=== PATIENT | male | born 1965 ===

== ENCOUNTER 2022-02-14 13:03 | Emergency (ER) | payer BC ==
[~2022-02-14] VITALS: Ht 175.3 cm; Wt 79.5 kg
[2022-02-14 13:56] VITALS: BP 117/79
== END 2022-02-14 14:03 | disposition left against medical advice (07) ==
LOC: ER 13:03
DX: R00.2 Palpitations (principal); Z53.21 Procedure and treatment not carried out due to patient leaving prior to being seen by health care provider